=== PATIENT | male | born 1980 | race American Indian/Alaskan Native ===

== ENCOUNTER 2018-04-22 09:09 | Emergency (ER) | payer OTHER ==
[2018-04-22 09:17] VITALS: BP 126/82
[2018-04-22] MEDS ORDERED: NACL 0.9% 1000 ML 1,000 ML IV ONE (09:17)
[2018-04-22 11:15] LABS: Basophils # (Auto) 0.1 K/mm3 (0.0-0.1); Basophils % (Auto) 0.8 % (0.0-1.8); Eosinophils # (Auto) 0.2 K/mm3 (0.0-0.4); Eosinophils % (Auto) 1.9 % (0.0-4.3); Hematocrit 40.4 % (35.5-45.6); Hemoglobin 13.7 gm/dl (11.8-15.2); Lymphocytes # (Auto) 3.2 K/mm3 (1.2-5.4); Lymphocytes % (Auto) 40.3 % (13.4-35.0); Mean Corpuscular HGB Conc 34 % (32-34); Mean Corpuscular Hemoglobin 30 pg (28-32); Mean Corpuscular Volume 87 fl (84-94); Monocytes # (Auto) 0.6 K/mm3 (0.0-0.8); Platelet Count 373 K/mm3 (140-440); Red Blood Count 4.62 M/mm3 (3.65-5.03); Red Cell Distribution Width 13.1 % (13.2-15.2)
[2018-04-22] MEDS ORDERED: LIDOCAINE VISCOUS 2% PO ONE (11:35)
[2018-04-22] MEDS ORDERED: ZOFRAN ODT PO ONE (11:35)
[2018-04-22] MEDS ORDERED: ALUM-MAG HYDROX-SIMETH 200-200-20MG/5ML PO ONE (11:35)
[2018-04-22] MEDS ORDERED: PROTONIX PO ONE (11:35)
[2018-04-22 11:36] LABS: Alanine Aminotransferase 20 units/L (7-56); Albumin 3.9 g/dL (3.9-5); BUN/Creatinine Ratio 8; Blood Urea Nitrogen 8 mg/dL (9-20); Calcium 9.3 mg/dL (8.4-10.2); Hemolysis Index 4
--- NOTE | 2018-04-22 11:40 | Emergency Department Report ---
Janeth Doc - Documentation Documentation: 37 yo male with a past medical history of HIV with recent CD4 count in the 1900s and hypertension presents to the hospital complaining of epigastric abdominal pain and vomiting blood. 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 By (today is Sunday) he began having nausea and epigastric abdominal pain described as a tightening with any by mouth intake. By Sunday he had an episode of grossly bloody vomitus was then followed by an episode of lightly bloody vomitus. The next day on Sunday patient states he had another episode of hematemesis. He states he to have knotting up his epigastric area/stomach with any by mouth intake including fluids. He has been drinking intermittently and eating organism no rales only. Patient has used half a bottle of Pepto- Bismol since symptom onset was black stool. Patient also took Zantac 1 last night. He denies aspirin, NSAID use, or history of peptic ulcer disease. No fever or diarrhea reported Epigastric tenderness on exam Labs pending Patient treated in the ED with Protonix by mouth, Zofran, Maalox, and viscous lidocaine Mid-level to follow up
--- NOTE | 2018-04-22 12:08 | Emergency Department Report ---
Vomiting/Diarrhea - HPI Chief Complaint: Abdominal Pain Stated Complaint: CHEST PAIN Time Seen by Provider: 04/22/18 11:14 Duration: one week Severity: moderate Nausea/Vomiting Severity: Moderate Diarrhea Severity: None Pain Location: Generalized Pain Severity: Moderate Symptoms: Yes Able to Tolerate Fluids, No Watery Diarrhea, No Bloody diarrhea, No Fever, No Recent Unusual Foods, No Recent Untreated Water, No Recent use of Antibiotics, No Family w/ Similar Symptoms, No Contacts w/ Similar Symptoms, No Rash, No Hematuria, No Recent URI Symptoms Other History: 37 yo male presents with dizziness and epigastric abdominal pain. History of HIV and hypertension. He also complaines of vomiting blood. 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 He started having abdominal pain and nauseas by . By Sunday he had an episode of grossly bloody vomitus was then followed by an episode of lightly bloody vomitus. The next day on Sunday patient states he had another episode of hematemesis. He states he to have knotting up his epigastric area/stomach with any by mouth intake including fluids. He has been drinking intermittently and eating organism no rales only. Patient has used half a bottle of Pepto-Bismol since symptom onset was black stool. Patient also took Zantac 1 last night. He denies aspirin, NSAID use, or history of peptic ulcer disease. No fever or diarrhea reported ED Review of Systems ROS: Stated complaint: CHEST PAIN Other details as noted in HPI Constitutional: denies: chills, fever Respiratory: denies: cough, shortness of breath, wheezing Cardiovascular: denies: chest pain, palpitations Gastrointestinal: abdominal pain (generalized abdominal pain), nausea, vomiting. denies: diarrhea, constipation, hematemesis, melena, hematochezia Neurological: denies: headache, weakness, paresthesias Psychiatric: denies: anxiety, depression ED Past Medical Hx - Past Medical History Hx Hypertension: Yes Hx HIV: Yes - Surgical History Past Surgical History?: No - Social History Smoking Status: Current Every Day Smoker Substance Use Type: None, Marijuana - Medications Home Medications: Home Medications Medication Instructions Recorded Confirmed Last Taken Type Sulfamethoxazole/Trimethoprim 1 each PO BID #14 tablet 08/12/16 Unknown Rx [Bactrim DS TAB] Omeprazole 40 mg PO DAILY #20 capsule. 04/22/18 Unknown Rx Ondansetron [Zofran Odt] 4 mg PO TID PRN #10 tab.[email or web address] 04/22/18 Unknown Rx Vomiting Diarrhea Exam - Exam General: Vital signs noted. No distress. Alert and acting appropriately. HEENT: Yes Moist Mucous Membranes, No Pharyngeal Erythema, No Pharyngeal Exudates, No Rhinorrhea, No Conjuctival Injection, No Frontal Tenderness, No Maxillary Tenderness Neck: No Adenopathy, No Rigidity Lungs: Yes Clear Lung Sounds, Yes Good Air Exchange, No Wheezes, No Stridor, No Cough, No Nasal Flaring, No Retractions, No Use of Accessory Muscles Heart exam: Regular: Yes, Murmur: No, Tachycardia: No Abdomen: Tenderness: Yes (epigastric tenderness), Peritoneal Signs: No, Distention: No, Hyperactive Bowel sounds: No Skin exam: Rash: No, Edema: No, Normal turgor: Yes Neurologic: Alert and oriented, no deficits. Musculoskeletal: Unremarkable. ED Course Vital Signs 04/22/18 09:13 Temperature 97.8 F Pulse Rate 72 Respiratory 16 Rate Blood Pressure 126/82 O2 Sat by Pulse 99 Oximetry ED Medical Decision Making - Lab Data Result diagrams: 04/22/18 10:36 04/22/18 10:36 - Radiology Data Radiology results: report reviewed EXAM: CT ABDOMEN PELVIS W CON HISTORY: epigastric pain and positive guaiac TECHNIQUE: Spiral CT scanning of the abdomen and pelvis after the uneventful administration of IV contrast. Multiplanar reformations. PRIORS: None. FINDINGS: Abdomen: Visualized lung bases grossly unremarkable. No radiopaque gallstones. Liver shows mildly decreased attenuation without focal abnormality. Spleen without significant abnormality. Pancreas without significant abnormality. Kidneys without significant abnormality. Adrenal glands without significant abnormality. Pelvis: Bowel evaluation limited due to lack of oral contrast administration. The colon is incompletely or nondistended primarily in ascending and descending segments, with variable bowel wall and fold thickening, but no significant pericolonic fat stranding. 8Remainder of visualized bowel grossly unremarkable, without evidence of mechanical bowel obstruction. Probable appendix partially visualized and grossly unremarkable. No significant free peritoneal fluid, discrete abscess or apparent adenopathy. Abdominal aorta non-aneurysmal. Axial skeleton without acute abnormality. IMPRESSION: 1. Findings compatible with mild fatty infiltration in the liver. 2. Findings which may be due to incomplete or nondistention versus nonspecific postinflammatory change in the colon of uncertain chronicity. Correlate clinically. - Medical Decision Making This is a 37 y.o. male that presents with vomiting and diarrhea for 24 hours. Patient is stable and was examined by me and Dr. Gomez. Vitals stable. Obtained CMP, CBC, lipase, and guaiac. Positive guaiac, all other labs unremarkable. Consulted with Dr. Martinez at [facility] and instructed to get a CT scan, CT scan is negative follow-up with him in office. Protonix by mouth, Zofran, Maalox, and viscous lidocaine. US of abdomen dictated by radiologist. 1. Findings compatible with mild fatty infiltration in the liver. 2. Findings which may be due to incomplete or nondistention versus nonspecific postinflammatory change in the colon of uncertain chronicity. Correlate clinically. Plan to start and omeprazole for gastritis. Discussed plan with patient and agreed to plan. No further questions noted by the patient. Discharged home in stable condition. Follow up with [facility] and [facility] in 2-3 days. Critical care attestation.: If time is entered above; I have spent that time in minutes in the direct care of this critically ill patient, excluding procedure time. ED Disposition Clinical Impression: Epigastric abdominal pain Nausea and vomiting Qualifiers: Vomiting type: unspecified Vomiting Intractability: non-intractable Qualified Code(s): R11.2 - Nausea with vomiting, unspecified Gastritis Qualifiers: Gastritis type: other gastritis Chronicity: unspecified Gastritis bleeding: without bleeding Qualified Code(s): K29.60 - Other gastritis without bleeding Disposition: DC-01 TO HOME OR SELFCARE Is pt being admited?: No Does the pt Need Aspirin: No Condition: Stable Instructions: Gastritis (ED), Acute Nausea and Vomiting (ED) Additional Instructions: Frequent hand washing is important to reduce spread. Prompt disinfection of contaminated surfaces with household chlorine bleach- based sports equipment racker and washing of soiled clothing and bedding should be advised. If food or water is thought to be contaminated, it should be avoided. Increase fluid intake. Drinks high in sugars such as carbonated soft drinks, fruit juice, and highly sugared liquids should be avoided. Follow-up with [facility] in 3-7 days. Prescriptions: Omeprazole 40 mg PO DAILY #20 capsule. Ondansetron [Zofran Odt] 4 mg PO TID PRN #10 tab.rapdis PRN Reason: Nausea And Vomiting Referrals: [facility] [Outside] - 3-5 Days [facility] [Outside] - 3-5 Days [facility] [Provider Group] - 3-5 Days Time of Disposition: 16:05 Print Language: LATVIAN
--- NOTE | 2018-04-22 15:31 | Cat Scan Report ---
FINAL REPORT EXAM: CT ABDOMEN PELVIS W CON HISTORY: epigastric pain and positive guaiac TECHNIQUE: Spiral CT scanning of the abdomen and pelvis after the uneventful administration of IV contrast. Multiplanar reformations. PRIORS: None. FINDINGS: Abdomen: Visualized lung bases grossly unremarkable. No radiopaque gallstones. Liver shows mildly decreased attenuation without focal abnormality. Spleen without significant abnormality. Pancreas without significant abnormality. Kidneys without significant abnormality. Adrenal glands without significant abnormality. Pelvis: Bowel evaluation limited due to lack of oral contrast administration. The colon is incompletely or nondistended primarily in ascending and descending segments, with variable bowel wall and fold thickening, but no significant pericolonic fat stranding. 8Remainder of visualized bowel grossly unremarkable, without evidence of mechanical bowel obstruction. Probable appendix partially visualized and grossly unremarkable. No significant free peritoneal fluid, discrete abscess or apparent adenopathy. Abdominal aorta non-aneurysmal. Axial skeleton without acute abnormality. IMPRESSION: 1. Findings compatible with mild fatty infiltration in the liver. 2. Findings which may be due to incomplete or nondistention versus nonspecific postinflammatory change in the colon of uncertain chronicity. Correlate clinically.
== END 2018-04-22 16:24 | disposition home or self-care (01) ==
LOC: ED 09:09
DX: K29.60 Other gastritis without bleeding (principal); R11.2 Nausea with vomiting, unspecified; I10 Essential (primary) hypertension; F17.200 Nicotine dependence, unspecified, uncomplicated
CPT/HCPCS: 36415; 74177; 80053; 82271; 83690; 83735; 85025; 99284; Q9967; Q0162